=== PATIENT | female | born 1970 | race Caucasian/White ===

== ENCOUNTER 2025-05-28 14:03 | Emergency (ER) | payer BC ==
[~2025-05-28] VITALS: Ht 154.9 cm; Wt 55.8 kg
[2025-05-28] MEDS ORDERED: LIDOCAINE HCL/MPF 1% 30 ML VIAL IJ ONE (14:29)
[2025-05-28] MEDS: LIDOCAINE /MPF 1% VIAL 5 ML VIAL IJ ONE (14:38)
[2025-05-28] MEDS ORDERED: TDAP [DIPH/PERTUSSIS/TET] 0.5 ML VIAL IM ONE (14:39)
[2025-05-28] MEDS: TDAP [DIPH/PERTUSSIS/TET] 0.5 ML VIAL IM ONE (14:44)
[2025-05-28 15:12] VITALS: BP 130/80; TEMP 98.7; O2SAT 100
== END 2025-05-28 15:12 | disposition home or self-care (01) ==
LOC: ER 14:26
DX: S61.512A Laceration without foreign body of left wrist, initial encounter (principal); M81.0 Age-related osteoporosis without current pathological fracture; M06.9 Rheumatoid arthritis, unspecified; W26.0XXA Contact with knife, initial encounter; Y93.G3 Activity, cooking and baking; Y92.000 Kitchen of unspecified non-institutional (private) residence as the place of occurrence of the external cause; Y99.9 Unspecified external cause status
CPT/HCPCS: 12002; 90471; 90715; 99283; A6403; J3490

== ENCOUNTER 2025-06-06 15:52 | Emergency (ER) | payer BC ==
[~2025-06-06] VITALS: Ht 154.9 cm; Wt 55.3 kg
[2025-06-06 15:58] VITALS: BP 129/82; TEMP 97.9
[2025-06-06 16:30] VITALS: O2SAT 99
== END 2025-06-06 16:30 | disposition home or self-care (01) ==
LOC: ER 16:04
DX: S61.512D Laceration without foreign body of left wrist, subsequent encounter (principal); Z48.02 Encounter for removal of sutures; M81.0 Age-related osteoporosis without current pathological fracture; M19.90 Unspecified osteoarthritis, unspecified site; X58.XXXD Exposure to other specified factors, subsequent encounter